=== PATIENT | female | born 1975 | race African-American/Black ===

== ENCOUNTER 2017-05-06 00:16 | Emergency (ER) | payer MEDICAID, OTHER ==
[~2017-05-06] VITALS: Ht 157.5 cm; Wt 63.5 kg
[~2017-05-06 00:16] MED LIST: BENADRYL ALLERG25 M1 PO; HYDROCORTISON28.4 G4 TP; NKM; POLYTRIM OP SOL10 ML OPHTHALM
[2017-05-06 00:27] VITALS: BP 140/83
--- NOTE | 2017-05-06 00:33 | Emergency Room Report ---
History of Present Illness General Chief Complaint: Flu Like Symptoms Source: Patient Present Illness HPI Patient presents with complaints of cough congestion ongoing for the past 7 days Patient denies any chest pain However feels others increased yellow sputum coming out Patient has been taking increasing amounts of cough medicine Denies any vomiting or diarrhea denies any fevers or chills denies any rash Allergies: Coded Allergies: No Known Allergies (Unverified , 01/19/15) Patient History Past Medical History: see triage record Pertinent Family History: none Last Menstrual Period: LAST MONTH Reviewed Nursing Documentation: PMH: Agreed, PSxH: Agreed Nursing Documentation-PMH Past Medical History: No Stated History Review of Systems All Other Systems: negative except mentioned in HPI Physical Exam Vital Signs Date Time Temp Pulse Resp B/P (MAP) Pulse Ox O2 Delivery O2 Flow Rate FiO2 05/06/17 00:20 97.9 75 16 140/83 99 Room Air Sp02 EP Interpretation: reviewed, normal General Appearance: well appearing, no apparent distress Head: normocephalic, atraumatic Eyes: bilateral eye PERRL, bilateral eye EOMI ENT: hearing grossly normal, normal pharynx, TMs + canals normal, uvula midline Neck: full range of motion, supple, no meningismus, no bony tend Respiratory: lungs clear, normal breath sounds, no rhonchi, no respiratory distress, no retraction, no accessory muscle use Cardiovascular #1: normal peripheral pulses, regular rate, rhythm, no edema, no gallop, no JVD, no murmur Gastrointestinal: normal bowel sounds, non tender, soft, no mass, no organomegaly, non-distended, no guarding, no hernia, no pulsatile mass, no rebound Genitourinary: no CVA tenderness Musculoskeletal: normal inspection Neurologic: oriented x3, responsive, digital account supervisor III-XII nml as tested, motor strength/ tone normal, sensory intact Psychiatric: mood/affect normal Skin: normal color, no rash, warm/dry, palpation normal Lymphatic: normal inspection, no adenopathy Medical Decision Making Diagnostic Impression: Primary Impression: Pneumonia ER Course Given the patient's presentation Given the history of smoking and duration of cough x-ray was obtained does not show any acute disease Patient is nevertheless diagnosed with clinical pneumonia And discharged in stable condition for initial conservative outpatient trial Chest X-Ray Diagnostic Results Chest X-Ray Diagnostic Results : Chest X-Ray Ordered: Yes # of Views/Limited/Complete: 1 View Indication: Shortness of Breath EP Interpretation: Yes Interpretation: no consolidation, no effusion, no pneumothorax Impression: No acute disease Electronically Signed by: Corinne Rolon DO Last Vital Signs Date Time Temp Pulse Resp B/P (MAP) Pulse Ox O2 Delivery O2 Flow Rate FiO2 05/06/17 00:20 97.9 75 16 140/83 99 Room Air Status: improved Disposition: HOME, SELF-CARE Condition: Improved Scripts Albuterol Sulfate* (ALBUTEROL SULFATE MDI*) 8.5 Gm Hfa.aer.ad 2 PUFF INH Q6H, #1 EA 0 Refills Prov: CORINNE ROLON D.O. 05/06/17 Guaifenesin/Dextromethorphan (ROBITUSSIN COUGH-CHEST DM LIQ) 237 Ml Liquid 5 ML PO QHS, #118 ML Prov: CORINNE ROLON D.O. 05/06/17 Azithromycin* (ZITHROMAX*) 250 Mg Tablet 250 MG ORAL DAILY, #6 TAB 0 Refills Take two tablets by mouth today, then take one tablet by mouth daily for four days Prov: CORINNE ROLON D.O. 05/06/17 Referrals: NON PHYSICIAN (PCP) Additional Instructions: Patient is provided with the discharge instructions notified to follow up with primary doctor in the next 2-3 days otherwise return to the er with any worsening symptoms. Please note that this report is being documented using [employer] technology. This can lead to erroneous entry secondary to incorrect interpretation by the dictating instrument. CORINNE ROLON D.O. May 06, 2017 00:33
[2017-05-06] MEDS ORDERED: ROBITUSSIN COU237 M1 PO (00:48)
[2017-05-06] MEDS ORDERED: AZITHROMYCIN250 MG ORAL (00:48)
[2017-05-06] MEDS ORDERED: ALBUTEROL SULF8.5 GM INH (00:50)
[2017-05-06 01:10] VITALS: BP 140/83
--- NOTE | 2017-05-08 11:02 | Diagnostic Imaging Report ---
Indication: SOB Technique: One view of the chest Comparison: none Findings: Lungs and pleural spaces are clear. Heart size is normal. Impression: No acute process
== END 2017-05-06 01:10 | disposition home or self-care (01) ==
LOC: EMR 00:29
DX: J18.9 Pneumonia, unspecified organism (principal)
CPT/HCPCS: 71010; 99284

== ENCOUNTER 2017-10-12 18:07 | Emergency (ER) | payer MEDICAID, OTHER ==
[~2017-10-12] VITALS: Ht 157.5 cm; Wt 61.2 kg
[~2017-10-12 18:07] MED LIST changes: +ALBUTEROL SULF8.5 GM INH; +AZITHROMYCIN250 MG ORAL; +ROBITUSSIN COU237 M1 PO
[2017-10-12 18:15] VITALS: BP 130/75
[2017-10-12] MEDS ORDERED: HYDROcodone/Acetamin 7.5/325 tab ORAL ONE (18:45)
[2017-10-12] MEDS ORDERED: IBUPROFEN600 MG ORAL (19:13)
--- NOTE | 2017-10-12 19:13 | Emergency Room Report ---
History of Present Illness General Chief Complaint: Upper Extremity Injury Source: Patient Present Illness HPI 42-year-old female presents to the emergency department complaining of tenderness, deformity and 2 out of 10 in severity pain to the left distal fifth digit times one day. 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 Patient states she did not notice the injury until she was outside in her hands began to warm up. Patient states that during the incident her hands were very cold and she did not have complete sensation at the time. Patient denies previous injury to this extremity. Patient reports inability to straighten her left pinky finger. Patient reports tenderness and swelling about the distal joint of the fifth digit. She denies open wounds or bleeding. Denies numbness tingling or loss of sensation or gross motor movements of the extremities, incontinence of bowel or bladder. Denies CP, Palpitations, LOC, AMS, dizziness, Changes in Vision, Sensation, paresthesias, or a sudden severe headache. Allergies: Coded Allergies: No Known Allergies (Unverified , 01/19/15) Patient History Past Medical History: see triage record Past Surgical History: none Pertinent Family History: none Now: No Reviewed Nursing Documentation: PMH: Agreed; PSxH: Agreed Nursing Documentation-PMH Past Medical History: No Stated History Review of Systems All Other Systems: negative except mentioned in HPI Physical Exam Vital Signs Date Time Temp Pulse Resp B/P (MAP) Pulse Ox O2 Delivery O2 Flow Rate FiO2 10/12/17 18:12 98.1 105 20 130/75 99 Room Air 98.1 Sp02 EP Interpretation: reviewed, normal General Appearance: no apparent distress, alert, GCS 15, non-toxic Head: normocephalic, atraumatic ENT: hearing grossly normal, normal voice Neck: full range of motion Respiratory: lungs clear, normal breath sounds, speaking full sentences Cardiovascular #1: regular rate, rhythm, normal capillary refill Musculoskeletal: back normal, gait/station normal, normal range of motion, tender - TTP isolated to the DIP of the left 5th digit, obvious deformity, straightens with assistance easily, unable to passively straighten her finger, mallet appearance. some swelling at the DIP joint. Neurologic: alert, oriented x3, responsive, motor strength/tone normal, sensory intact, normal gait, speech normal, grossly normal Psychiatric: judgement/insight normal Skin: normal color, no rash, warm/dry, well hydrated Medical Decision Making PA Attestation Dr. Curry is my supervising Physician whom patient management has been discussed with. Diagnostic Impression: Primary Impression: Mallet finger of left hand ER Course 42-year-old female presents to the emergency department complaining of tenderness, deformity and 2 out of 10 in severity pain to the left distal fifth digit times one day. 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 Patient states she did not notice the injury until she was outside in her hands began to warm up. Patient states that during the incident her hands were very cold and she did not have complete sensation at the time. Patient denies previous injury to this extremity. Patient reports inability to straighten her left pinky finger. Patient reports tenderness and swelling about the distal joint of the fifth digit. She denies open wounds or bleeding. Denies numbness tingling or loss of sensation or gross motor movements of the extremities, incontinence of bowel or bladder. Denies CP, Palpitations, LOC, AMS, dizziness, Changes in Vision, Sensation, paresthesias, or a sudden severe headache. Ddx considered but are not limited to Fracture, dislocation, contusion, Sprain/ Strain/Spasm just to name a few.. Vital signs: are WNL, pt. is afebrile H&PE are most consistent with musculoskeletal injury will perform imaging to r/ o fractures/dislocations. ORDERS: - X-ray Left Hand 3 views - negative for fx, Dislocation, or significant soft tissue injury, - distal phalanx is partially flexed. per preliminary read in ED, and signed by ALEX Newman, my supervising physician has reviewed, and agrees with my interpretation. ED INTERVENTIONS: - Pain med PO - Left finger Splint applied by rehab tech. Pt. remains neurovascularly intact. -d/w pt. follow up instructions, and prolonged use of finger splint. DISCHARGE: At this time pt. is stable for d/c to home. Will provide printed patient care instructions, and any necessary prescriptions. Care plan and follow up instructions have been discussed with the patient prior to discharge. Other X-Ray Diagnostic Results Other X-Ray Diagnostic Results : X-Ray ordered: Left Hand # of Views/Limited Vs Complete: 3 View Indication: Pain EP Interpretation: Yes PA Xray: Interpretation reviewed, by supervising MD, and agrees with findings. Interpretation: no dislocation, no soft tissue swelling, no fractures Impression: No acute disease Electronically Signed by: Carolin Newman PA-C Last Vital Signs Date Time Temp Pulse Resp B/P (MAP) Pulse Ox O2 Delivery O2 Flow Rate FiO2 10/12/17 18:40 98.1 10/12/17 18:15 105 20 130/75 99 Room Air Disposition: HOME, SELF-CARE Condition: Stable Scripts Ibuprofen* (MOTRIN*) 600 Mg Tablet 600 MG ORAL THREE TIMES A DAY, #20 TAB 0 Refills Prov: Carolin Newman 10/12/17 Departure Forms: Return to Work Return to Work Date: October 13, 2017 Work Restrictions: No Heavy Lifting Other Restrictions: limited use of left hand. Return to Full Activity: Oct 27, 2017 Patient Instructions: Mallet Finger Additional Instructions: Take medications as directed. Follow up with a Primary Care Provider in 3-5 days, even if your symptoms have resolved. --Please review list of primary care clinics, if you do not already have a primary care provider Return sooner to ED if new symptoms occur, or current symptoms become worse. - Please note that this Emergency Department Report was dictated using [employer] technology software, occasionally this can lead to erroneous entry secondary to interpretation by the dictation equipment. Carolin Newman October 12, 2017 19:13
[2017-10-12 19:30] VITALS: BP 0/0
--- NOTE | 2017-10-13 10:46 | Diagnostic Imaging Report ---
Indication: pain. Left hand pain Findings: 3 views of the left hand were obtained. There is a flexion deformity of the fifth DIP joint. No acute fractures, erosions, or periosteal reaction are seen. Soft tissues are unremarkable. Impression: Flexion deformity of the fifth DIP joint. Correlate clinically.
== END 2017-10-12 19:30 | disposition home or self-care (01) ==
LOC: EMR 18:25
DX: M20.012 Mallet finger of left finger(s) (principal)
CPT/HCPCS: 99283